=== PATIENT | female | born 1950 | race Caucasian/White ===

== ENCOUNTER 2016-09-24 13:19 | Outpatient (CLI) | payer OTHER ==
--- NOTE | 2016-09-24 15:44 | Diagnostic Imaging Report ---
CORINNE TRONCOSO [id number] [facility] [address] [address] Report Submission Date: September 24, 2016 3:41:14 PM CDT Patient Study Name: CÉSAR FIGUEROA Date: September 24, 2016 1:23:03 PM CDT Modality Type: CR Gender: F Description: SHOULDER : 54 Institution: Physician: CORINNE TRONCOSO 2 views of the left shoulder History: LEFT SHOULDER PAIN FOR ONE YEAR. NO KNOWN INJURY Findings: No comparison studies No evidence of acute fracture or dislocation of the left shoulder. Glenohumeral alignment is preserved. Impression: No evidence of acute fracture or dislocation of the left shoulder. Electronically signed on September 24, 2016 3:41:14 PM CDT by: Marixa STOUT
== END 2016-09-24 13:20 ==
LOC: RAD 13:19
PROVIDERS: ATTEND Family Medicine
DX: M25.512 Pain in left shoulder (principal)
CPT/HCPCS: 73030